=== PATIENT | male | born 1980 | race Caucasian/White ===

== ENCOUNTER 2018-10-04 12:14 | Emergency (ER) | payer SELFPAY ==
[2018-10-04] MEDS ORDERED: KETOROLAC TROMETHAMINE INJ 30 MG/ML VIAL IM ONE (13:08)
--- NOTE | 2018-10-04 13:10 | ED.PDOC ---
History of Present Illness - General Chief Complaint: General Time Seen by Provider: 10/04/18 13:00 Source: patient Exam Limitations: no limitations - History of Present Illness Initial Comments: Patient presents with acute on chronic exacerbation of carpal tunnel syndrome. He does not have a regular doctor at this time. 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 He says the wrist splints hurt so he will not use them. He has an RX for gabapentin but does not take it. The pain is in the wrist with radiation to the fingers, constant, tingling, worse with movement, better with rest. No other complaints. Timing/Duration: changing over time, intermittent Severity: moderate Improving Factors: rest Worsening Factors: movement Associated Symptoms: denies symptoms Home Medications: Ambulatory Orders Meloxicam [Vivlodex] 10 mg PO DAILY #30 cap 10/04/18 Review of Systems - Review of Systems Constitutional: States: no symptoms reported EENTM: States: no symptoms reported Respiratory: States: no symptoms reported Cardiology: States: no symptoms reported Gastrointestinal/Abdominal: States: no symptoms reported Genitourinary: States: no symptoms reported Musculoskeletal: States: see HPI Skin: States: no symptoms reported Neurological: States: no symptoms reported Endocrine: States: no symptoms reported Hematologic/Lymphatic: States: no symptoms reported Physical Exam - Physical Exam General Appearance: Alert Respiratory: lungs clear, normal breath sounds Cardiovascular/Chest: normal peripheral pulses, regular rate, rhythm Gastrointestinal/Abdominal: normal bowel sounds, non tender, soft Extremity: other - Positive Phalen's sign. Negative Tinel's. Neurologic: no motor/sensory deficits, alert, normal mood/affect, oriented x 3 Departure - Departure Clinical Impression: Carpal tunnel syndrome on both sides Disposition: Discharge to Home or Self Care Condition: Good Departure Forms: ED Discharge - Pt. Copy, Patient Portal Self Enrollment Instructions: Carpal Tunnel Syndrome (DC) Diet: resume usual diet Activity: other - as per your regular doctor Prescriptions: Meloxicam [Vivlodex] 10 mg PO DAILY #30 cap Home Medications: Ambulatory Orders Meloxicam [Vivlodex] 10 mg PO DAILY #30 cap 10/04/18 Additional Instructions: Take medications as prescribed. Call Dr. Ann's office to set up a new patient visit for longer term care.
[2018-10-04 13:39] VITALS: BP 139/83; TEMP 97.5; O2SAT 100
== END 2018-10-04 13:45 | disposition home or self-care (01) ==
LOC: ER 12:14
DX: G56.03 Carpal tunnel syndrome, bilateral upper limbs (principal)

== ENCOUNTER 2019-02-10 10:16 | Emergency (ER) | payer SELFPAY ==
[2019-02-10 10:39] VITALS: BP 139/87; TEMP 97.5; O2SAT 97
[2019-02-10] MEDS ORDERED: DEXAMETHASONE INJ 10 MG/ML VIAL IM ONE (10:48)
[2019-02-10] MEDS ORDERED: KETOROLAC TROMETHAMINE INJ 60 MG/2 ML VIAL IM ONE (10:48)
--- NOTE | 2019-02-10 10:51 | ED.PDOC ---
History of Present Illness - General Chief Complaint: Upper Extremity Injury Stated Complaint: "both of my hands hurt" Time Seen by Provider: 02/10/19 10:48 Source: patient Exam Limitations: no limitations - History of Present Illness Initial Comments: 38 yo M with hx of carpel tunnel who presents for bilateral hand pain that flared up after falling off a 6foot ladder and catching himself with his hands behind him. Pt reports some swelling to his R pinky but denies it being broken, denies any concern for broken bones, declines XR. Has seen his PCP for these sx in the past and followed up with a nerve test, told a local steroid injection would not be helpful, pt does not have insurance and when sx flare up he presents to ED for steroid and anti-inflammatory shot and prescription for Meloxicam that improves sx dramatically. Denies pain or injury elsewhere, denies head trauma, denies LOC. Denies weakness, numbness, f/c, joint swelling. Denies any new sx from his normal carpel tunnel flares and states that is all this is. Allergies/Adverse Reactions: Allergies NO KNOWN ALLERGY Allergy (Verified 10/04/18 13:24) Home Medications: Ambulatory Orders Meloxicam [Mobic] 7.5 mg PO DAILY #14 tab 02/10/19 Review of Systems - Review of Systems Constitutional: Denies: chills, fever Musculoskeletal: States: joint pain. Denies: joint swelling Skin: Denies: lesions, rash Neurological: Denies: numbness, weakness Past Medical History (General) - Patient Medical History Hx Seizures: No Hx Asthma: No Hx of COPD: Yes Hx Cardiac Disorders: No Hx Congestive Heart Failure: No Hx Pacemaker: No Hx Hypertension: No Hx Diabetes: No Hx Cancer: No Hx Hepatitis C: No Surgical History: other - Vaccination History Hx Tetanus, Diphtheria Vaccination: No - Social History Hx Tobacco Use: Yes Hx Alcohol Use: Yes - Activities of Daily Living Hospice Agency (if applicable):: None - Triage Comment ED Triage Comment: pt ambulated to ed bed 2 without difficulty. pt voices that he is having bilateral hand pain after fall from ladder on thursday02/08/19. pt voices history of carpal tunnel and just needs a script for anti inflammatory meds to help. pt denies any other symptoms at this time. Family Medical History - Family History Mother Family History: No Known Physical Exam - Physical Exam General Appearance: Alert, Comfortable, No apparent distress, Well Developed, Well Nourished Neck: full range of motion, supple Cardiovascular/Respiratory: regular rate, rhythm, normal peripheral pulses, no respiratory distress Shoulder Exam: normal inspection, non-tender, no evidence of injury, normal ROM Elbow/Forearm Exam: normal inspection, non-tender, no evidence of injury, normal ROM Wrist Exam: normal inspection, non-tender, no evidence of injury, normal ROM Hand Exam: non-tender, normal ROM, swelling - R little finger with swelling distally, no swelling elsewhere, no deformity noted to bilateral hands, 2+ pulses, cap refill <sec Neuro/Tendon: normal sensation, normal motor functions, normal tendon functions Mental Status: alert Skin Exam: normal color, warm/dry, other - cap refill <2sec Progress - Progress Progress: 02/10/19 10:51 I have explained and reviewed all results with the pt. Declines XR, states he knows it is not broken, he has been dealing with this for years and knows it is his carpal tunnel acting up. Given decadron and toraol in ED. I explained that emergent conditions may arise and to return to the ER for new, worsening, or any persistent conditions. I've explained the importance of f/u for recheck. All questions and concerns addressed at this time. Pt understands and agrees with plan. Pt well appearing, NAD, is stable for discharge. Dian Gong MD Emergency Medicine Physician Billing Number [id number] Departure - Departure Clinical Impression: Bilateral hand pain, Carpal tunnel syndrome, bilateral Time of Disposition: 10:49 Disposition: Discharge to Home or Self Care Health Concerns: condition: stable Departure Forms: ED Discharge - Pt. Copy, Patient Portal Self Enrollment Instructions: Carpal Tunnel Syndrome (DC) Prescriptions: Meloxicam [Mobic] 7.5 mg PO DAILY #14 tab Home Medications: Ambulatory Orders Meloxicam [Mobic] 7.5 mg PO DAILY #14 tab 02/10/19 Additional Instructions: Follow up: [facility] As needed, if symptoms worsen Your Primary Care Physician Make appointment, two days, for follow up
== END 2019-02-10 11:08 | disposition home or self-care (01) ==
LOC: ER 10:16
DX: M79.641 Pain in right hand (principal); M79.642 Pain in left hand; G56.03 Carpal tunnel syndrome, bilateral upper limbs; J44.9 Chronic obstructive pulmonary disease, unspecified; Z87.891 Personal history of nicotine dependence; Z79.899 Other long term (current) drug therapy
CPT/HCPCS: J1100; J1885

== ENCOUNTER 2019-02-14 12:44 | Emergency (ER) | payer SELFPAY ==
--- NOTE | 2019-02-14 13:00 | ED.PDOC ---
History of Present Illness - General Time Seen by Provider: 02/14/19 12:58 Source: patient - History of Present Illness Initial Comments: 38 yo male with PMH of BL carpal tunnel syndrome who presents with cc of BL wrist and hand pain. Reports fell on BL outstretched hands off 6 foot ladder 5 days ago, seen in ED here 02/10 and treated for carpal tunnel pain with Decadron and toradol and sent home on Mobic. Reports good pain control x1 day but has wo rsened again. Pain is constant, 6/10 severity, aching/throbbing, begins in hands and wrists and radiates up forearms to elbows, feels like exac of carpal tunnel. He refuses x-rays because "I know it's not broken". Reports intermittent tingling/numbness throughout both hands, slightly worse from chronic. States he can't afford outpatient trx of CTS due to no insurance. Works in construction. Allergies/Adverse Reactions: Allergies NO KNOWN ALLERGY Allergy (Verified 10/04/18 13:24) Home Medications: Ambulatory Orders Meloxicam [Mobic] 7.5 mg PO DAILY #14 tab 02/10/19 Acetaminophen W/ Codeine [Tylenol W/ CODEINE #3] 1 ea PO Q6H PRN 7 Days #15 02/14/19 predniSONE 60 mg PO DAILY 4 Days #12 tab 02/14/19 Review of Systems - Review of Systems Review of Systems: 02/14/19 14:27 as per HPI All other Systems: Reviewed and Negative Past Medical History (General) - Patient Medical History Hx Seizures: No Hx Asthma: No Hx of COPD: Yes Hx Cardiac Disorders: No Hx Congestive Heart Failure: No Hx Pacemaker: No Hx Hypertension: No Hx Diabetes: No Hx Cancer: No Hx Hepatitis C: No - Vaccination History Hx Tetanus, Diphtheria Vaccination: No - Social History Hx Tobacco Use: Yes Hx Alcohol Use: Yes Family Medical History - Family History Mother Family History: No Known Physical Exam - Physical Exam General Appearance: Alert, Comfortable, No apparent distress Eye Exam: bilateral normal Ears, Nose, Throat: hearing grossly normal Neck: non-tender, full range of motion, supple, normal inspection Respiratory: lungs clear, normal breath sounds, no respiratory distress Cardiovascular/Chest: normal peripheral pulses, regular rate, rhythm, no edema, no murmur Peripheral Pulses: radial,right: 2+, radial,left: 2+ Gastrointestinal/Abdominal: non tender, soft Back Exam: normal inspection, no CVA tenderness Extremity: normal capillary refill, other - BL hands and wrists appear normal without swelling/deformity/color change, no bony ttp noted, reports slightly decreased sensation to light touch throughout both hands, 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 BL hands due to pain, otherwise strength normal throughout, tinels and Philens testing + BL 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, alert, normal mood/affect, oriented x 3 Skin Exam: normal color, warm/dry Progress - Progress Progress: 02/14/19 14:29 BL Hand & wrist pain -wrist sprain vs frx vs hand frx vs CTS -pt refuses x-rays, just would like pain relief and work note -will repeat Decadron 8 mg IM & Toradol 60 mg IM & send home with Rx of prednisone x4 days and Tylenol #3 PRN (#15) -advised close PCP f/u Geo Hernandez MD Billing #[id number] Departure - Departure Clinical Impression: Carpal tunnel syndrome on both sides, Bilateral hand pain Wrist sprain Qualifiers: Encounter type: initial encounter Laterality: unspecified laterality Qualified Code(s): S63.509A - Unspecified sprain of unspecified wrist, initial encounter Time of Disposition: 14:20 Disposition: Discharge to Home or Self Care Condition: Good Departure Forms: ED Discharge - Work Release Instructions: Carpal Tunnel Syndrome (DC), Wrist Sprain (DC) Diet: resume usual diet Activity: increase activity as tolerated Prescriptions: Acetaminophen W/ Codeine [Tylenol W/ CODEINE #3] 1 ea PO Q6H PRN 7 Days #15 PRN Reason: Pain predniSONE 60 mg PO DAILY 4 Days #12 tab Home Medications: Ambulatory Orders Meloxicam [Mobic] 7.5 mg PO DAILY #14 tab 02/10/19 Acetaminophen W/ Codeine [Tylenol W/ CODEINE #3] 1 ea PO Q6H PRN 7 Days #15 02/14/19 predniSONE 60 mg PO DAILY 4 Days #12 tab 02/14/19 Additional Instructions: Continue taking ibuprofen 600 mg every 6 hours and/or Tylenol as needed for pain. You may take Tylenol #3 for breakthrough pain but do not drive or operate heavy machinery while taking this medication as it may make you drowsy or impair judgment. Follow up with your primary care doctor in 1-2 weeks.
[2019-02-14 13:08] VITALS: TEMP 96.9
[2019-02-14] MEDS: DEXAMETHASONE INJ 4 MG/ML VIAL IM ONE (14:25)
[2019-02-14] MEDS: KETOROLAC TROMETHAMINE INJ 60 MG/2 ML VIAL IM ONE (14:25)
[2019-02-14 14:42] VITALS: BP 112/84; O2SAT 97
== END 2019-02-14 14:41 | disposition home or self-care (01) ==
LOC: ER 12:44
DX: S63.509A Unspecified sprain of unspecified wrist, initial encounter (principal); G56.03 Carpal tunnel syndrome, bilateral upper limbs; M79.641 Pain in right hand; M79.642 Pain in left hand; J44.9 Chronic obstructive pulmonary disease, unspecified; Z87.891 Personal history of nicotine dependence; W11.XXXA Fall on and from ladder, initial encounter; Y92.9 Unspecified place or not applicable
CPT/HCPCS: J1100; J1885

== ENCOUNTER 2019-05-28 14:33 | Emergency (ER) | payer SELFPAY ==
[2019-05-28] MEDS ORDERED: HYDROcodone 10MG/APAP 325MG 1 EA TAB PO ONE (14:46)
[2019-05-28] MEDS ORDERED: TETANUS,DIPHTHERIA,PERTUSSIS 1 EA SYG IM ONE (14:46)
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
[2019-05-28 16:37] VITALS: BP 127/98; TEMP 98.4; O2SAT 97
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
== END 2019-05-28 16:00 | disposition home or self-care (01) ==
LOC: ER 14:33
DX: S52.572A Other intraarticular fracture of lower end of left radius, initial encounter for closed fracture (principal); S60.411A Abrasion of left index finger, initial encounter; Z87.891 Personal history of nicotine dependence; W22.09XA Striking against other stationary object, initial encounter; Y92.003 Bedroom of unspecified non-institutional (private) residence as the place of occurrence of the external cause

== ENCOUNTER 2019-08-24 21:38 | Emergency (ER) | payer SELFPAY ==
[2019-08-24] MEDS ORDERED: HYDROcodone 10MG/APAP 325MG 1 EA TAB PO ONE (21:46)
[2019-08-24] MEDS ORDERED: MORPHINE SULFATE INJ 10 MG/ML VIAL IM ONE (22:00)
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
[2019-08-24] MEDS ORDERED: ETOMIDATE INJECTION 2 MG/ML 20ML VIAL IV ONE ×2 (22:42)
[2019-08-24] MEDS ORDERED: SODIUM CHLORIDE 0.9% 1000ML 1,000 ML ONE (22:49)
[2019-08-24] MEDS ORDERED: SODIUM CHLORIDE 0.9% 1000ML 1,000 ML IVS ONE (22:50)
[2019-08-24 23:14] VITALS: O2SAT 100
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
--- NOTE | 2019-08-24 23:20 | RAD ---
EXAM DESCRIPTION: Forearm,Right CLINICAL HISTORY: 38 years Male, post reduction COMPARISON: 08/24/2019 at 20:00. FINDINGS: There is gross anatomic alignment about fracture involving the radial diaphysis. IMPRESSION: 1. Successful closed reduction of radial fracture. Electronically signed by: Luis Bailey MD 08/24/2019 11:19 PM CDT
[2019-08-24 23:54] VITALS: BP 124/89; TEMP 98.2
== END 2019-08-24 23:55 | disposition home or self-care (01) ==
LOC: ER 21:38
DX: S52.301A Unspecified fracture of shaft of right radius, initial encounter for closed fracture (principal); F17.200 Nicotine dependence, unspecified, uncomplicated; W22.8XXA Striking against or struck by other objects, initial encounter; Y92.9 Unspecified place or not applicable
CPT/HCPCS: 73090; 73100; 94770; J2270; J7030